=== PATIENT | female | born 2000 | race Caucasian/White ===

== ENCOUNTER 2018-09-13 21:03 | Observation (INO) ==
[2018-09-13] MEDS ORDERED: Isovue-370 500 ML BOTTLE IVP ONE (22:12)
--- NOTE | 2018-09-13 22:16 | Emergency Department Note ---
Disposition Clinical Impression: Abdominal pain Qualifiers: Abdominal location: lower abdomen, unspecified Qualified Code(s): R10.30 - Lower abdominal pain, unspecified Appendicitis Qualifiers: Appendicitis type: acute appendicitis Acute appendicitis type: with localized peritonitis Appendicitis gangrene presence: without gangrene Appendicitis perforation presence: without perforation Appendicitis abscess presence: without abscess Qualified Code(s): K35.30 - Acute appendicitis with localized peritonitis, without perforation or gangrene Disposition: Admitted As Inpatient Condition: Fair Referrals: NONE,PCP [Primary Care Provider] - Forms: ED Satisfaction Letter, Work/School Release Abdominal Pain HPI - General Chief Complaint: ED Abdominal Pain Stated Complaint: abdominal pain Time Seen by Provider: 09/13/18 22:00 Source: patient Mode of arrival: private vehicle Limitations: no limitations Nursing Notes Reviewed: Yes Vital Signs Reviewed: Yes - History of Present Illness HPI Narrative: Patient is a 26-year-old female in no past medical history, presenting with chief complaint of lower abdominal pain for the past 12 hours. Patient states 12 hours ago, she woke up with sudden onset lower abdominal pain, right greater than left. She states pain is sharp and in intensive eyes in waves. Pain worsens with movement and with ambulation. She complains of chills but no fevers, decreased appetite, no nausea or vomiting, diarrhea, abnormal bowel movements, dysuria, hematuria, back pain, abnormal vaginal discharge. First day of her last normal menstrual period was one week ago. She has an IUD in no concern for STDs. Denies history of ovarian cysts. She went to urgent care just prior to arrival. She states they did a urinalysis and told her to come to the emergency department for a CT to rule out appendicitis. Pain Scale: 7 - Related Data Previous Rx's Medication Instructions Recorded Acetaminophen/Butalbital/Caffe 1 each PO BID PRN #4 tablet 02/12/18 [Fioricet] Allergies Allergy/AdvReac Type Severity Reaction Status Date / Time No Known Allergies Allergy Verified 09/13/18 21:04 All systems ED: reviewed and negative except as stated. Review of Systems: As Per HPI Constitutional: Reports: chills. Denies: fever Cardiovascular: Denies: chest pain, palpitations Respiratory: Denies: cough, dyspnea Gastrointestinal: Reports: abdominal pain, nausea. Denies: vomiting, diarrhea, hematochezia Genitourinary: Denies: dysuria, hematuria Musculoskeletal: Denies: back pain Abdominal Pain PMH - Past Medical History Medical history: Reports: no medical history Female Surgical History: Reports: no surgical history Psychiatric history: Reports: no psych history - Social History Smoking status: Never smoker Alcohol use: Reports: none Drug use: Reports: none Physical Exam - General Limitations: no limitations General appearance: alert, in distress (mild), other (Grimaces in pain when she moves from a sitting position to a laying position) - Head Head exam: atraumatic, normocephalic, normal inspection - Eye Eye exam: Present: normal appearance, EOMI - ENT ENT exam: normal exam, mucous membranes moist - Neck Neck exam: Present: normal inspection - Chest Chest inspection: Present: normal inspection, symmetric chest wall rise - Respiratory Respiratory exam: Present: normal lung sounds bilaterally. Absent: respiratory distress, wheezes - Cardiovascular Cardiovascular exam: Present: regular rate, normal rhythm, normal heart sounds Course Vital Signs Temperature 98.4 F 09/13/18 21:04 Pulse Rate 105 09/13/18 21:04 Respiratory Rate 16 09/13/18 21:04 Blood Pressure 138/83 09/13/18 21:04 O2 Sat by Pulse Oximetry 100 09/13/18 21:04 Temperature 98.4 F 09/13/18 21:04 Pulse Rate 105 09/13/18 21:04 Respiratory Rate 16 09/13/18 21:04 Blood Pressure 138/83 09/13/18 21:04 O2 Sat by Pulse Oximetry 100 09/13/18 21:04 Oxygen Delivery Oxygen Delivery Room Air Abdominal Pain - [facility] Narrative Medical decision making narrative: Patient is presenting with lower abdominal pain, lower abdominal tenderness with involuntary guarding. We will obtain urinalysis to evaluate for urinary tract infection and urine . Obtain CBC, BMP, hepatic panel, lipase that she does have some tenderness in the epigastric region and decreased appetite as well. She denies abnormal vaginal discharge, dyspareunia, history of ovarian cysts. However we will need to rule out appendicitis and obtain CT abdomen and pelvis with IV contrast. The patient states she does not want to take anything for nausea or pain at this time. 00:20 CT abdomen and pelvis results show acute nonperforated appendicitis, appendix measuring 13 mm. Reevaluated the patient, she states she is doing well. Acute care surgery has been consulted at this time. 00:[address] David, general surgery. He will evaluate the patient. No further recommendations at this time. Patient will remain nothing by mouth. Patient states she would not like anything at this time and she is comfortable. She remains medically stable. - Medical Records Medical records reviewed: Yes I reviewed the patient's medical records. - Lab Data Lab results reviewed: Yes I reviewed the patient's lab results. Result diagrams: 09/13/18 22:20 09/13/18 22:20 Lab Results 09/13/18 09/13/18 09/13/18 Range/Units 22:16 22:16 22:20 WBC 11.4 H (4.3-11.1) K/mcL RBC 4.35 (3.82-4.97) M/mcL Hgb 10.8 L (11.5-15.4) g/dL Hct 34.4 L (35.3-44.9) % MCV 79.1 L (83.0-100.0) fL MCH 24.8 L (28.0-33.3) pg MCHC 31.4 L (31.6-35.5) g/dL RDW 15.1 H (11.5-14.5) % Plt Count 361 (140-400) K/mcL MPV 9.1 L (9.4-12.4) fL Immature Gran % 0.4 (0-4) % Seg Neutrophils % 68.3 % Lymphocytes % 22.3 % Monocytes % 8.0 % Eosinophils % 0.4 % Basophils % 0.6 % Neutrophils # 7.8 (1.6-8.9) K/mcL Lymphocytes # 2.6 (0.6-4.6) K/mcL Monocytes # 0.9 (0.0-1.3) K/mcL Eosinophils # 0.1 (0.0-0.6) K/mcL Basophils # 0.1 (0.0-0.2) K/mcL Sodium (136-145) mEq/L Potassium (3.5-5.1) mEq/L Chloride (98-107) mEq/L Carbon Dioxide (23-29) mEq/L BUN (6-20) mg/dL Creatinine (0.60-1.20) mg/dL Est GFR ( Amer) (> 60) Est GFR (Non-Af Amer) (> 60) BUN/Creatinine Ratio (6-26) Glucose (70-105) mg/dL Calculated Osmolality (280-300) Calcium (8.6-10.3) mg/dL Total Bilirubin (0.3-1.0) mg/dL Direct Bilirubin (0.0-0.2) mg/dL Indirect Bilirubin (0.0-1.2) mg/dL AST (13-39) Units/L ALT (7-52) Units/L Alkaline Phosphatase (34-104) Units/L Serum Total Protein (6.4-8.9) g/dL Albumin (3.5-5.7) g/dL Globulin (2.4-3.5) g/dL Albumin/Globulin Ratio (1.1-2.2) Lipase (11-82) Units/L Urine Color Yellow (Yellow) Urine Clarity Cloudy A (Clear) Urine pH 6.0 (5.0-8.0) pH Units Ur Specific [place] 1.020 (1.010-1.025) Urine Protein Trace (Neg-Trace) mg/dL Urine Glucose (UA) Normal (Normal) mg/dL Urine Ketones 15 H (Negative) mg/dL Urine Blood Negative (Negative) Urine Nitrite Negative (Negative) Urine Bilirubin Negative (Negative) Urine Urobilinogen Normal (Normal) mg/dL Ur Leukocyte Esterase Moderate H (Negative) Urine Microscopic RBC 15-30 H (0-3) per hpf Urine Microscopic WBC 50-100 H (0-3) per hpf Ur Squamous Epith Cells Many H (None-Few) per lpf Urine Bacteria Moderate H (None-Few) per hpf Hyaline Casts None Seen (None-Few) per lpf Ur Culture Indicated? YES A (NO) Urine Test Negative (Negative) 09/13/18 Range/Units 22:20 WBC (4.3-11.1) K/mcL RBC (3.82-4.97) M/mcL Hgb (11.5-15.4) g/dL Hct (35.3-44.9) % MCV (83.0-100.0) fL MCH (28.0-33.3) pg MCHC (31.6-35.5) g/dL RDW (11.5-14.5) % Plt Count (140-400) K/mcL MPV (9.4-12.4) fL Immature Gran % (0-4) % Seg Neutrophils % % Lymphocytes % % Monocytes % % Eosinophils % % Basophils % % Neutrophils # (1.6-8.9) K/mcL Lymphocytes # (0.6-4.6) K/mcL Monocytes # (0.0-1.3) K/mcL Eosinophils # (0.0-0.6) K/mcL Basophils # (0.0-0.2) K/mcL Sodium 135 L (136-145) mEq/L Potassium 3.7 (3.5-5.1) mEq/L Chloride 102 (98-107) mEq/L Carbon Dioxide 23 (23-29) mEq/L BUN 9 (6-20) mg/dL Creatinine 0.68 (0.60-1.20) mg/dL Est GFR ( Amer) > 60 (> 60) Est GFR (Non-Af Amer) > 60 (> 60) BUN/Creatinine Ratio 13 (6-26) Glucose 103 (70-105) mg/dL Calculated Osmolality 279 L (280-300) Calcium 9.4 (8.6-10.3) mg/dL Total Bilirubin 0.5 (0.3-1.0) mg/dL Direct Bilirubin 0.1 (0.0-0.2) mg/dL Indirect Bilirubin 0.4 (0.0-1.2) mg/dL AST 20 (13-39) Units/L ALT 15 (7-52) Units/L Alkaline Phosphatase 80 (34-104) Units/L Serum Total Protein 8.1 (6.4-8.9) g/dL Albumin 4.9 (3.5-5.7) g/dL Globulin 3.2 (2.4-3.5) g/dL Albumin/Globulin Ratio 1.5 (1.1-2.2) Lipase 19 (11-82) Units/L Urine Color (Yellow) Urine Clarity (Clear) Urine pH (5.0-8.0) pH Units Ur Specific [place] (1.010-1.025) Urine Protein (Neg-Trace) mg/dL Urine Glucose (UA) (Normal) mg/dL Urine Ketones (Negative) mg/dL Urine Blood (Negative) Urine Nitrite (Negative) Urine Bilirubin (Negative) Urine Urobilinogen (Normal) mg/dL Ur Leukocyte Esterase (Negative) Urine Microscopic RBC (0-3) per hpf Urine Microscopic WBC (0-3) per hpf Ur Squamous Epith Cells (None-Few) per lpf Urine Bacteria (None-Few) per hpf Hyaline Casts (None-Few) per lpf Ur Culture Indicated? (NO) Urine Test (Negative) - Radiology Data Radiology results reviewed: Yes I reviewed the patient's radiology results. Abdomen/Pelvis CT 09/13/18 22:12 IMPRESSION: Non perforated acute appendicitis. D/ / Maximo Fragoso / Maximo Fragoso Interpreting Provider: Maximo Fragoso
[2018-09-13 22:29] LABS: Bilirubin,Urine Negative (Negative); Blood,Urine Negative (Negative); Clarity,Urine Cloudy (Clear); Color,Urine Yellow (Yellow); Glucose,Urine (UA) Normal (Normal); Ketones,Urine 15 mg/dL (Negative); Leukocyte Esterase,Urine Moderate (Negative); Nitrite,Urine Negative (Negative); Protein,Urine Trace mg/dL (Neg-Trace); Urobilinogen,Urine Normal (Normal)
[2018-09-13 22:32] LABS: Bacteria,Urine Moderate per hpf (None-Few); Hyaline Casts,Urine None Seen per lpf (None-Few); RBC,Urine 15-30 per hpf (0-3); Squamous Epithelial Cell,Urine Many per lpf (None-Few); WBC,Urine 50-100 per hpf (0-3)
--- NOTE | 2018-09-13 22:32 | Emergency Department Note ---
Disposition Clinical Impression: Abdominal pain Qualifiers: Abdominal location: lower abdomen, unspecified Qualified Code(s): R10.30 - Lower abdominal pain, unspecified Appendicitis Qualifiers: Appendicitis type: acute appendicitis Acute appendicitis type: with localized peritonitis Appendicitis gangrene presence: unspecified whether gangrene present Appendicitis perforation presence: unspecified whether perforation present Appendicitis abscess presence: unspecified whether abscess present Qualified Code(s): K35.30 - Acute appendicitis with localized peritonitis, without perforation or gangrene Disposition: Admitted As Inpatient Condition: Fair Referrals: NONE,PCP [Primary Care Provider] - Forms: ED Satisfaction Letter, Work/School Release General Adult HPI - General Chief complaint: ED Abdominal Pain Stated complaint: abdominal pain Time Seen by Provider: 09/13/18 22:00 Source: patient Mode of arrival: private vehicle Limitations: no limitations Nursing Notes Reviewed: Yes Vital Signs Reviewed: Yes - History of Present Illness Pain Scale: 7 - Related Data Previous Rx's Medication Instructions Recorded Acetaminophen/Butalbital/Caffe 1 each PO BID PRN #4 tablet 02/12/18 [Fioricet] Allergies Allergy/AdvReac Type Severity Reaction Status Date / Time No Known Allergies Allergy Verified 09/13/18 21:04 Constitutional: Reports: chills. Denies: fever Cardiovascular: Denies: chest pain, palpitations Respiratory: Denies: cough, dyspnea Gastrointestinal: Reports: abdominal pain, nausea. Denies: vomiting, diarrhea, hematochezia Genitourinary: Denies: dysuria, hematuria Musculoskeletal: Denies: back pain Past Medical History - Past Medical History Medical history: Reports: no medical history Surgical history: Reports: no surgical history Psychiatric history: Reports: no psych history - Social History Smoking Status: Never smoker Smokeless Tobacco Status: No Alcohol use: Reports: none Drug use: Reports: none Physical Exam - General Limitations: no limitations General appearance: alert, in distress (mild), other (Grimaces in pain when she moves from a sitting position to a laying position) Course Vital Signs Temperature 98.4 F 09/13/18 21:04 Pulse Rate 105 09/13/18 21:04 Respiratory Rate 16 09/13/18 21:04 Blood Pressure 138/83 09/13/18 21:04 O2 Sat by Pulse Oximetry 100 09/13/18 21:04 Temperature 98.4 F 09/13/18 21:04 Pulse Rate 105 09/13/18 21:04 Respiratory Rate 16 09/13/18 21:04 Blood Pressure 138/83 09/13/18 21:04 O2 Sat by Pulse Oximetry 100 09/13/18 21:04 Oxygen Delivery Oxygen Delivery Room Air Medical Decision Making - Medical Records Medical records reviewed: Yes I reviewed the patient's medical records. - Lab Data Lab results reviewed: Yes I reviewed the patient's lab results. Result diagrams: 09/13/18 22:20 09/13/18 22:20 Lab Results 09/13/18 09/13/18 09/13/18 Range/Units 22:16 22:16 22:20 WBC 11.4 H (4.3-11.1) K/mcL RBC 4.35 (3.82-4.97) M/mcL Hgb 10.8 L (11.5-15.4) g/dL Hct 34.4 L (35.3-44.9) % MCV 79.1 L (83.0-100.0) fL MCH 24.8 L (28.0-33.3) pg MCHC 31.4 L (31.6-35.5) g/dL RDW 15.1 H (11.5-14.5) % Plt Count 361 (140-400) K/mcL MPV 9.1 L (9.4-12.4) fL Immature Gran % 0.4 (0-4) % Seg Neutrophils % 68.3 % Lymphocytes % 22.3 % Monocytes % 8.0 % Eosinophils % 0.4 % Basophils % 0.6 % Neutrophils # 7.8 (1.6-8.9) K/mcL Lymphocytes # 2.6 (0.6-4.6) K/mcL Monocytes # 0.9 (0.0-1.3) K/mcL Eosinophils # 0.1 (0.0-0.6) K/mcL Basophils # 0.1 (0.0-0.2) K/mcL Sodium (136-145) mEq/L Potassium (3.5-5.1) mEq/L Chloride (98-107) mEq/L Carbon Dioxide (23-29) mEq/L BUN (6-20) mg/dL Creatinine (0.60-1.20) mg/dL Est GFR ( Amer) (> 60) Est GFR (Non-Af Amer) (> 60) BUN/Creatinine Ratio (6-26) Glucose (70-105) mg/dL Calculated Osmolality (280-300) Calcium (8.6-10.3) mg/dL Total Bilirubin (0.3-1.0) mg/dL Direct Bilirubin (0.0-0.2) mg/dL Indirect Bilirubin (0.0-1.2) mg/dL AST (13-39) Units/L ALT (7-52) Units/L Alkaline Phosphatase (34-104) Units/L Serum Total Protein (6.4-8.9) g/dL Albumin (3.5-5.7) g/dL Globulin (2.4-3.5) g/dL Albumin/Globulin Ratio (1.1-2.2) Lipase (11-82) Units/L Urine Color Yellow (Yellow) Urine Clarity Cloudy A (Clear) Urine pH 6.0 (5.0-8.0) pH Units Ur Specific [place] 1.020 (1.010-1.025) Urine Protein Trace (Neg-Trace) mg/dL Urine Glucose (UA) Normal (Normal) mg/dL Urine Ketones 15 H (Negative) mg/dL Urine Blood Negative (Negative) Urine Nitrite Negative (Negative) Urine Bilirubin Negative (Negative) Urine Urobilinogen Normal (Normal) mg/dL Ur Leukocyte Esterase Moderate H (Negative) Urine Microscopic RBC 15-30 H (0-3) per hpf Urine Microscopic WBC 50-100 H (0-3) per hpf Ur Squamous Epith Cells Many H (None-Few) per lpf Urine Bacteria Moderate H (None-Few) per hpf Hyaline Casts None Seen (None-Few) per lpf Ur Culture Indicated? YES A (NO) Urine Test Negative (Negative) 09/13/18 Range/Units 22:20 WBC (4.3-11.1) K/mcL RBC (3.82-4.97) M/mcL Hgb (11.5-15.4) g/dL Hct (35.3-44.9) % MCV (83.0-100.0) fL MCH (28.0-33.3) pg MCHC (31.6-35.5) g/dL RDW (11.5-14.5) % Plt Count (140-400) K/mcL MPV (9.4-12.4) fL Immature Gran % (0-4) % Seg Neutrophils % % Lymphocytes % % Monocytes % % Eosinophils % % Basophils % % Neutrophils # (1.6-8.9) K/mcL Lymphocytes # (0.6-4.6) K/mcL Monocytes # (0.0-1.3) K/mcL Eosinophils # (0.0-0.6) K/mcL Basophils # (0.0-0.2) K/mcL Sodium 135 L (136-145) mEq/L Potassium 3.7 (3.5-5.1) mEq/L Chloride 102 (98-107) mEq/L Carbon Dioxide 23 (23-29) mEq/L BUN 9 (6-20) mg/dL Creatinine 0.68 (0.60-1.20) mg/dL Est GFR ( Amer) > 60 (> 60) Est GFR (Non-Af Amer) > 60 (> 60) BUN/Creatinine Ratio 13 (6-26) Glucose 103 (70-105) mg/dL Calculated Osmolality 279 L (280-300) Calcium 9.4 (8.6-10.3) mg/dL Total Bilirubin 0.5 (0.3-1.0) mg/dL Direct Bilirubin 0.1 (0.0-0.2) mg/dL Indirect Bilirubin 0.4 (0.0-1.2) mg/dL AST 20 (13-39) Units/L ALT 15 (7-52) Units/L Alkaline Phosphatase 80 (34-104) Units/L Serum Total Protein 8.1 (6.4-8.9) g/dL Albumin 4.9 (3.5-5.7) g/dL Globulin 3.2 (2.4-3.5) g/dL Albumin/Globulin Ratio 1.5 (1.1-2.2) Lipase 19 (11-82) Units/L Urine Color (Yellow) Urine Clarity (Clear) Urine pH (5.0-8.0) pH Units Ur Specific [place] (1.010-1.025) Urine Protein (Neg-Trace) mg/dL Urine Glucose (UA) (Normal) mg/dL Urine Ketones (Negative) mg/dL Urine Blood (Negative) Urine Nitrite (Negative) Urine Bilirubin (Negative) Urine Urobilinogen (Normal) mg/dL Ur Leukocyte Esterase (Negative) Urine Microscopic RBC (0-3) per hpf Urine Microscopic WBC (0-3) per hpf Ur Squamous Epith Cells (None-Few) per lpf Urine Bacteria (None-Few) per hpf Hyaline Casts (None-Few) per lpf Ur Culture Indicated? (NO) Urine Test (Negative) - Radiology Data Radiology results reviewed: Yes I reviewed the patient's radiology results. Abdomen/Pelvis CT 09/13/18 22:12 IMPRESSION: Non perforated acute appendicitis. D/ / Maximo Fragoso / Maximo Fragoso Interpreting Provider: Maximo Fragoso Attestation Statement - Attestation Attestation: I, Ky Pozo MD, personally evaluated this patient and discussed their management with the resident physician. I reviewed the resident's note and agree with the documented findings, medical decision making, and plan of care. 18-year-old female presents to the emergency department with a complaint of mid and bilateral lower abdominal pain which started about 26 hours prior to arrival. Pain has been constant and getting gradually worse. No nausea or vomiting or diarrhea. No fever. No melena, hematemesis, or hematochezia. No dysuria or hematuria. No flank pain. No abnormal vaginal bleeding or discharge. Patient has an IUD. She is 1 para 1. Last menstrual period was approximately 2 weeks ago and was normal. Patient was seen at an urgent care and she states they checked her urine and told her to come here to get checked for appendicitis. On examination patient is a well-developed well-nourished well-appearing young female in no acute distress. She is alert and oriented 3. There is no cyanosis or diaphoresis. Breath sounds are clear and equal bilaterally. Heart regular rate and rhythm. Abdomen is soft with normal bowel sounds. It is mild to moderate suprapubic and bilateral lower abdominal tenderness on direct palpation. No significant guarding or rebound tenderness. No CVA tenderness. Labs reviewed. CT of the abdomen and pelvis shows nonperforated acute appendicitis. The surgeon outplacement consultant, Dr. David, was consulted and will see the patient shortly in the emergency department. Patient taken from the emergency department to the operating room for appendectomy.
[2018-09-13 22:39] LABS: Basophils # 0.1 K/mcL (0.0-0.2); Basophils % 0.6 %; Eosinophils # 0.1 K/mcL (0.0-0.6); Eosinophils % 0.4 %; Hematocrit 34.4 % (35.3-44.9); Hemoglobin 10.8 g/dL (11.5-15.4); Immature Granulocytes % 0.4 % (0-4); Lymphocytes # 2.6 K/mcL (0.6-4.6); Lymphocytes % 22.3 %; Mean Corpuscular HGB Conc 31.4 g/dL (31.6-35.5); Mean Corpuscular Hemoglobin 24.8 pg (28.0-33.3); Mean Corpuscular Volume 79.1 fL (83.0-100.0); Mean Platelet Volume 9.1 fL (9.4-12.4); Monocytes # 0.9 K/mcL (0.0-1.3); Neutrophils # 7.8 K/mcL (1.6-8.9); Platelet Count 361 K/mcL (140-400); Red Blood Count 4.35 M/mcL (3.82-4.97); Red Cell Distribution Width 15.1 % (11.5-14.5); Segmented Neutrophils % 68.3 %
[2018-09-13 23:01] LABS: Alanine Aminotransferase 15 Units/L (7-52); Albumin 4.9 g/dL (3.5-5.7); Albumin/Globulin Ratio 1.5 (1.1-2.2); Alkaline Phosphatase 80 Units/L (34-104); Aspartate Amino Transferase 20 Units/L (13-39); BUN/Creatinine Ratio 13 (6-26); Bilirubin,Direct 0.1 mg/dL (0.0-0.2); Bilirubin,Indirect 0.4 mg/dL (0.0-1.2); Bilirubin,Total 0.5 mg/dL (0.3-1.0); Blood Urea Nitrogen 9 mg/dL (6-20); Calcium 9.4 mg/dL (8.6-10.3); Carbon Dioxide 23 mEq/L (23-29); Chloride 102 mEq/L (98-107); Globulin 3.2 g/dL (2.4-3.5); Glucose 103 mg/dL (70-105); Lipase 19 Units/L (11-82); Osmolality,Calculated 279 (280-300); Potassium 3.7 mEq/L (3.5-5.1); Sodium 135 mEq/L (136-145); Total Protein 8.1 g/dL (6.4-8.9); eGFR For Non-African Americans > 60 (> 60)
--- NOTE | 2018-09-14 01:21 | Acute Care Surgery H&P ---
Date of Encounter: 09/14/18 Time of Encounter: 01:00 Assessment and Plan (1) Appendicitis Current Visit: Yes Status: Acute The assessment and plan as outlined above was discussed with the patient and/or family members who expressed understanding and agreement. All questions were answered. The patient has acute appendicitis by history, laboratory evaluation, and radiologic evaluation. We will plan laparoscopic appendectomy on an emergent basis. Qualifiers: Appendicitis type: acute appendicitis Acute appendicitis type: with localized peritonitis Appendicitis gangrene presence: unspecified whether gangrene present Appendicitis perforation presence: unspecified whether perforation present Appendicitis abscess presence: unspecified whether abscess present Qualified Code(s): K35.30 - Acute appendicitis with localized peritonitis, without perforation or gangrene History of Present Illness Chief complaint: Abdominal pain HPI: Ms. Zeng is a 18 year old female The patient has a one-day history of lower abdominal pain. This is continuous in nature and not crampy in nature. She has nausea but no vomiting or diarrhea. She has been anorexic. She sought evaluation in the emergency department. CAT scan demonstrated acute appendicitis. I personally reviewed the CAT scan the abdomen. She has a dilated appendix with some periappendiceal fluid in the pelvis. The patient is uncomfortable lying on her right side. She does have pain with motion. She states the pain is continuous in nature. Past Med Surg Social Fam HX - Past Medical History Medical history: no medical history Additional medical history: anemia Psychiatric history: no psych history - Past Surgical History Surgical History: no surgical history - Social History Smoking Status: Never smoker Smokeless Tobacco Status: No Alcohol use: none Drug use: none Medications and Allergies Acetaminophen/Butalbital/Caffe [Fioricet] 1 each PO BID PRN #4 tablet 02/12/18 [Rx] Allergy/AdvReac Type Severity Reaction Status Date / Time No Known Allergies Allergy Verified 09/13/18 21:04 Review of Systems All systems PM: The remainder of the systems were reviewed and are negative General Surgery Exam Initial Vital Signs Temp Pulse Resp BP Pulse Ox 98.4 F 105 16 138/83 100 09/13/18 21:04 09/13/18 21:04 09/13/18 21:04 09/13/18 21:04 09/13/18 21:04 - General physical appearance well developed, well nourished, moderate pain - Neck no masses, no bruits, trachea midline, no lymphadectomy, no venous distension - Respiratory normal expansion, normal respiratory effort, clear to percussion, clear to auscultation - Cardiovascular Cardiovascular exam: Present: RRR, distant heart sounds - Abdomen Abdomen general surgery: Present: bowel sounds present, soft, tender Abdominal Tenderness: Present: RLQ, suprapubic (Patient does have guarding but no rebound) - Integumentary Integumentary general surgery: Present: warm and dry, no abnormal pigmentation - Neurologic Present: CN 2-12 grossly intact, normal coordination, normal sensation - Psychiatric Psychiatric general surgery: Present: appropriate, oriented to person, oriented to place, oriented to time, speech is normal, memory intact Results - Labs 09/13/18 22:20 09/13/18 22:20 Abnormal lab results WBC 11.4 K/mcL (4.3-11.1) H 09/13/18 22:20 Hgb 10.8 g/dL (11.5-15.4) L 09/13/18 22:20 Hct 34.4 % (35.3-44.9) L 09/13/18 22:20 MCV 79.1 fL (83.0-100.0) L 09/13/18 22:20 MCH 24.8 pg (28.0-33.3) L 09/13/18 22:20 MCHC 31.4 g/dL (31.6-35.5) L 09/13/18 22:20 RDW 15.1 % (11.5-14.5) H 09/13/18 22:20 MPV 9.1 fL (9.4-12.4) L 09/13/18 22:20 Sodium 135 mEq/L (136-145) L 09/13/18 22:20 279 (280-300) L 09/13/18 22:20 Cloudy (Clear) A 09/13/18 22:16 15 mg/dL (Negative) H 09/13/18 22:16 Ur Leukocyte Esterase Moderate (Negative) H 09/13/18 22:16 15-30 per hpf (0-3) H 09/13/18 22:16 50-100 per hpf (0-3) H 09/13/18 22:16 Ur Squamous Epith Cells Many per lpf (None-Few) H 09/13/18 22:16 Moderate per hpf (None-Few) H 09/13/18 22:16 Ur Culture Indicated? YES (NO) A 09/13/18 22:16 Diabetes panel 09/13/18 Range/Units 22:20 Sodium 135 L (136-145) mEq/L Potassium 3.7 (3.5-5.1) mEq/L Chloride 102 (98-107) mEq/L Carbon Dioxide 23 (23-29) mEq/L BUN 9 (6-20) mg/dL Creatinine 0.68 (0.60-1.20) mg/dL Glucose 103 (70-105) mg/dL Calcium 9.4 (8.6-10.3) mg/dL AST 20 (13-39) Units/L ALT 15 (7-52) Units/L Alkaline Phosphatase 80 (34-104) Units/L Albumin 4.9 (3.5-5.7) g/dL Calcium panel 09/13/18 Range/Units 22:20 Calcium 9.4 (8.6-10.3) mg/dL Albumin 4.9 (3.5-5.7) g/dL Pituitary panel 09/13/18 Range/Units 22:20 Sodium 135 L (136-145) mEq/L Potassium 3.7 (3.5-5.1) mEq/L Chloride 102 (98-107) mEq/L Carbon Dioxide 23 (23-29) mEq/L BUN 9 (6-20) mg/dL Creatinine 0.68 (0.60-1.20) mg/dL Glucose 103 (70-105) mg/dL Calcium 9.4 (8.6-10.3) mg/dL Adrenal panel 09/13/18 Range/Units 22:20 Sodium 135 L (136-145) mEq/L Potassium 3.7 (3.5-5.1) mEq/L Chloride 102 (98-107) mEq/L Carbon Dioxide 23 (23-29) mEq/L BUN 9 (6-20) mg/dL Creatinine 0.68 (0.60-1.20) mg/dL Glucose 103 (70-105) mg/dL Calcium 9.4 (8.6-10.3) mg/dL Total Bilirubin 0.5 (0.3-1.0) mg/dL AST 20 (13-39) Units/L ALT 15 (7-52) Units/L Alkaline Phosphatase 80 (34-104) Units/L Albumin 4.9 (3.5-5.7) g/dL All other labs normal. - Imaging CT scan - abdomen: image reviewed (I personally reviewed the CAT scan the abdomen. The appendix was swollen and attached to the right pelvic sidewall with some periappendiceal inflammation and fluid)
[2018-09-14] MEDS ORDERED: Acetaminophen IV 1,000 MG/100 ML INFUS..BTL ONE (01:44)
[2018-09-14] MEDS ORDERED: *HR* Cisatracurium 10 MG/5 ML VIAL IV ONE (01:44)
[2018-09-14] MEDS ORDERED: *HR* FentaNYL (PF) 100 MCG/2 ML VIAL ONE (01:46)
[2018-09-14] MEDS ORDERED: *HR* Midazolam HCl 2 MG/2 ML VIAL ONE (01:46)
[2018-09-14] MEDS ORDERED: *HR* Propofol 200 MG/20 ML VIAL IVP ONE (01:46)
[2018-09-14] MEDS ORDERED: Dexamethasone 4 MG/ML VIAL ONE (01:47)
[2018-09-14] MEDS ORDERED: Lidocaine -MPF 2% 2 ML VIAL ONE (01:47)
[2018-09-14] MEDS ORDERED: *HR* Succinylcholine 200 MG/10 ML VIAL IVP ONE (01:47)
[2018-09-14] MEDS ORDERED: Ondansetron 4 MG/2 ML VIAL ONE (01:47)
[2018-09-14] MEDS ORDERED: CefOXitin 2,000 MG VIAL ONE (01:56)
[2018-09-14] MEDS ORDERED: *HR* Promethazine 25 MG/ML VIAL IVP PRN ×2 (02:02→02:25)
[2018-09-14] MEDS ORDERED: Ondansetron 4 MG/2 ML VIAL IVP ONE ×2 (02:02)
[2018-09-14] MEDS ORDERED: *HR* OxyCODONE Immed Rel 5 MG TABLET PO PRN ×2 (02:02→02:25)
[2018-09-14] MEDS ORDERED: *HR* HYDROmorphone (PF) 1 MG/ML SYRINGE IVP PRN ×2 (02:02→02:25)
[2018-09-14] MEDS ORDERED: CefOXitin 1,000 MG VIAL ONE (02:04)
--- NOTE | 2018-09-14 02:19 | Anesthesia Evaluation PreOp ---
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 Other Medical History: Denies Any Significant HX Anesthesia History: Past Anesthesia (no prior GA) Test: Negative (09/13/2018) Alcohol Use: rarely Drug use: none Medications and Allergies Acetaminophen/Butalbital/Caffe [Fioricet] 1 each PO BID PRN #4 tablet 02/12/18 [Rx] 3 Allergy/AdvReac Type Severity Reaction Status Date / Time No Known Allergies Allergy Verified 09/13/18 21:04 - Meds/Allergy Pre-op Review Medications Reviewed: Yes Allergies Reviewed: Yes Beta Blockers on Current Med List: No Anesthesia Results - Labs 09/13/18 22:20 09/13/18 22:20 Laboratory Tests 09/13/18 22:16 Urine Test Negative Anesthesia Exam Vital Signs/O2 Sat, Most Current Temp Pulse Resp BP Pulse Ox 98.4 F 105 16 138/83 100 09/13/18 21:04 09/13/18 21:04 09/13/18 21:04 09/13/18 21:04 09/13/18 21:04 Height: 5'3''/1.6m Weight: 175 lbs/79.4 kg NPO (# of Hours): 8 Pain Scale: 0 Pain Scale Used: Numeric (1 - 10) - HEENT Pupil (Motor): EOMI Mallampati: II Teeth: Normal Oral Opening: Greater than 3 - LUNCH TRUCK DRIVER LOC: Oriented LUNCH TRUCK DRIVER Motor: Normal RUE, Normal LUE, Normal RLE, Normal LLE, Normal Face LUNCH TRUCK DRIVER Sensory: Normal: RUE, LUE, RLE, LLE, Face - Cardiac Rhythm: Regular Murmur: None - Pulmonary Breath Sounds: bilateral Clear Respiratory Effort: Symmetrical Anesthesia Assess/Plan ASA Score: 1 Level of consciousness: Cooperative, Oriented, Tranquil Anesthetic Plan: General Monitoring Plan: Standard Monitors Recovery Plan: PACU
--- NOTE | 2018-09-14 03:15 | Operative Note ---
Date of procedure: 09/14/18 Pre-op diagnosis: Acute appendicitis Post-op diagnosis: same Procedure: Laparoscopic appendectomy Anesthesia: LAILA Surgeon: Nazario David Was there an teachers assistant present: No Estimated blood loss (cc): 10 Specimen: Appendix Condition: stable Disposition: PACU Procedure in Detail: After informed consent the patient was taken to the major operating suite. She was placed in the supine position and given adequate general endotracheal anesthesia. The abdomen was prepped and draped in sterile fashion utilizing ChloraPrep and standard draping techniques. Timeout was taken and the patient was identified. I made a vertical midline incision below the umbilicus and dissected down the level of fascia. 2 traction stitches were placed. A Palmer trocar was used to enter the abdomen visually. I placed a 5 mm trocar in the left lower quadrant. I placed a 12 trocar in the right upper quadrant. The cecum was grasped and elevated. The tip the appendix was stuck on the right pelvic sidewall below the right tube and ovary. I was able to tease this intact off the pelvic sidewall and delivered this to its normal anatomic position and the right lower quadrant. The appendix was acutely inflamed. There was pus visible at the tip the appendix. And there was purulence in the fluid became out of the pelvis. Class IV wound. I dissected the peritoneal opening between the mesial appendix and base the cecum. The base the cecum was divided off the appendix with a laparoscopic stapler gastrointestinal load. The mesoappendix was divided with a laparoscopic stapler vascular load. There was no bleeding. The appendix was removed in a specimen bag through the umbilical port site. I took photographic documentation of the appendix before and after removal and the intact staple lines. I also took a photograph of the right tube and ovary. The fibrillar and of the right tube had inflammatory exudate. This is obviously involved in the area on the right pelvic sidewall that was identified preoperatively by CAT scan. I irrigated the pelvis with copious amounts of antibiotic containing solution until the pelvis was completely clear of any turbid fluid. The trochars were removed. Fascia was closed with 0 Vicryl and skin was closed with 2-0 Vicryl and 4-0 Vicryl. She tolerated the procedure very well and is transferred to recovery in stable condition
--- NOTE | 2018-09-14 03:39 | Anesthesia Evaluation Post Op ---
Date of Encounter: 09/14/18 Time of Encounter: 03:38 - Vital Signs Vital Signs: Vital Signs/O2 Sat, Most Current Temp Pulse Resp BP Pulse Ox 99.6 F 87 16 117/63 98 09/14/18 03:16 09/14/18 03:36 09/14/18 03:36 09/14/18 03:36 09/14/18 03:36 - Lungs Lungs: Clear Ascult./Percussion - Airway Airway: Non-obstructed - Cardiovascular Regular Rate - Mental Status Mental Status: Asleep with brisk response to light stimulation - Pain Pain Scale: 0 Pain Scale used: Numeric (1 - 10) - Nausea Vomiting Nausea Vomiting: Not Present - Hydration Hydration: Ice chips, Has not voided - Discharge PostOp Status: Transfer Patient to floor
[2018-09-14] MEDS ORDERED: *HR* OxyCODONE/APAP 5/325 TABLET PO PRN (04:52)
[2018-09-14] MEDS ORDERED: 0.9 % Sodium Chloride 1,000 ML IVC SCH (04:52)
[2018-09-14] MEDS ORDERED: OXYCODONE Oral CONC 10 MG/0.5 ML ORAL.SYG SL PRN (04:52)
[2018-09-14] MEDS ORDERED: Ondansetron 4 MG/2 ML VIAL IVP PRN (04:52)
[2018-09-14] MEDS: cefOXitin 2,000 MG in Water for inj. (sterile) 20 ML 20 ML IVP SCH ×2 (08:55→16:13)
[2018-09-14 16:09] VITALS: BP 94/67
--- NOTE | 2018-09-14 16:11 | Discharge Summary ---
Orders not resulted at time of discharge: Pending orders 09/13/18 22:16 Culture,Urine [RM] Stat 09/14/18 03:04 Surgical Pathology [PTH] Routine Date of Encounter: 09/14/18 Time of Encounter: 16:07 - Discharge Diagnosis (1) Appendicitis Priority: Primary Status: Acute Comments: 18F POD #1 s/p lap appy; tolerating diet, ambulating on her own; pain controlled; finished last dose of antibiotics; has met discharge criteria okay for discharge; follow up in 4 weeks in [facility] Qualifiers: Appendicitis type: acute appendicitis Acute appendicitis type: with localized peritonitis Appendicitis gangrene presence: unspecified whether gangrene present Appendicitis perforation presence: unspecified whether perforation present Appendicitis abscess presence: unspecified whether abscess present Qualified Code(s): K35.30 - Acute appendicitis with localized peritonitis, without perforation or gangrene General Surgery Exam Initial Vital Signs Temp Pulse Resp BP Pulse Ox 98.4 F 105 16 138/83 100 09/13/18 21:04 09/13/18 21:04 09/13/18 21:04 09/13/18 21:04 09/13/18 21:04 - General physical appearance no distress - Respiratory normal expansion, normal respiratory effort - Cardiovascular Cardiovascular exam: Present: RRR - Abdomen Abdomen general surgery: Present: soft, tender (appropriately tender) - Incision Incision: Present: clean and dry, intact - Neurologic Present: CN 2-12 grossly intact - Musculoskeletal Present: normal posture - Hospital Course Hospital course: Ms. Zeng is a 18 year old female Time spent discussing smoking cessation with patient: more than 10 minutes - Time Spent with Patient Total time spent providing and/or coordinating discharge services: - Discharge Medications Prescriptions: New OxyCODONE/APAP 5/325 [Percocet 5/325 MG] 1 each PO Q6HR PRN 4 Days #16 tablet PRN Reason: Pain (1-5) Continued Levonorgestrel [Mirena] 52 mg PO AD Home Medications: Levonorgestrel [Mirena] 52 mg PO AD 09/14/18 [History] OxyCODONE/APAP 5/325 [Percocet 5/325 MG] 1 each PO Q6HR PRN 4 Days #16 tablet 09/14/18 [Rx] Allergies/Adverse Reactions: Allergy/AdvReac Type Severity Reaction Status Date / Time No Known Allergies Allergy Verified 09/14/18 08:53 Date of admission: 09/14/18 02:26 Primary care physician: PCP NONE Discharging clinician: Iker Carney Anticipated date of discharge: 09/14/18 Labs on day of discharge: Labs from last 24 hours 09/13/18 09/13/18 09/13/18 22:20 22:20 22:16 WBC 11.4 H RBC 4.35 Hgb 10.8 L Hct 34.4 L MCV 79.1 L MCH 24.8 L MCHC 31.4 L RDW 15.1 H Plt Count 361 MPV 9.1 L Immature Gran % 0.4 Seg Neutrophils % 68.3 Lymphocytes % 22.3 Monocytes % 8.0 Eosinophils % 0.4 Basophils % 0.6 Neutrophils # 7.8 Lymphocytes # 2.6 Monocytes # 0.9 Eosinophils # 0.1 Basophils # 0.1 Sodium 135 L Potassium 3.7 Chloride 102 Carbon Dioxide 23 BUN 9 Creatinine 0.68 Est GFR ( Amer) > 60 Est GFR (Non-Af Amer) > 60 BUN/Creatinine Ratio 13 Glucose 103 Calculated Osmolality 279 L Calcium 9.4 Total Bilirubin 0.5 Direct Bilirubin 0.1 Indirect Bilirubin 0.4 AST 20 ALT 15 Alkaline Phosphatase 80 Serum Total Protein 8.1 Albumin 4.9 Globulin 3.2 Albumin/Globulin Ratio 1.5 Lipase 19 Urine Color Urine Clarity Urine pH Ur Specific [place] Urine Protein Urine Glucose (UA) Urine Ketones Urine Blood Urine Nitrite Urine Bilirubin Urine Urobilinogen Ur Leukocyte Esterase Urine Microscopic RBC Urine Microscopic WBC Ur Squamous Epith Cells Urine Bacteria Hyaline Casts Ur Culture Indicated? Urine Test Negative 09/13/18 22:16 WBC RBC Hgb Hct MCV MCH MCHC RDW Plt Count MPV Immature Gran % Seg Neutrophils % Lymphocytes % Monocytes % Eosinophils % Basophils % Neutrophils # Lymphocytes # Monocytes # Eosinophils # Basophils # Sodium Potassium Chloride Carbon Dioxide BUN Creatinine Est GFR ( Amer) Est GFR (Non-Af Amer) BUN/Creatinine Ratio Glucose Calculated Osmolality Calcium Total Bilirubin Direct Bilirubin Indirect Bilirubin AST ALT Alkaline Phosphatase Serum Total Protein Albumin Globulin Albumin/Globulin Ratio Lipase Urine Color Yellow Urine Clarity Cloudy A Urine pH 6.0 Ur Specific [place] 1.020 Urine Protein Trace Urine Glucose (UA) Normal Urine Ketones 15 H Urine Blood Negative Urine Nitrite Negative Urine Bilirubin Negative Urine Urobilinogen Normal Ur Leukocyte Esterase Moderate H Urine Microscopic RBC 15-30 H Urine Microscopic WBC 50-100 H Ur Squamous Epith Cells Many H Urine Bacteria Moderate H Hyaline Casts None Seen Ur Culture Indicated? YES A Urine Test Preliminary micro results at discharge 09/13/18 22:16 Urine Culture - Preliminary Urine,Clean Catch Culture is incubating. - Impressions ITS Impressions Abdomen/Pelvis CT 09/13/18 22:12 IMPRESSION: Non perforated acute appendicitis. D/ / Maximo Fragoso / Maximo Fragoso Interpreting Provider: Maximo Fragoso - Patient Status Disposition: Home, Self-Care Condition: Good - Discharge Instructions Follow Up With: NONE,PCP [Primary Care Provider] - Nazario David MD [Partnered Physician] - (follow up with Frankie in [facility] in 4 weeks) - Diet and Activity Activity: increase activity as tolerated Diet: advance to your usual diet
== END 2018-09-14 18:03 | disposition home or self-care (01) ==
LOC: EMEROOARM 21:03 → 3ANU 21:03 → EMEROOARM 09-14 02:14
PROVIDERS: ADMIT Surgery; ATTEND Surgery